=== PATIENT | male | born 1995 | race Two or more races ===

== ENCOUNTER 2024-06-28 20:21 | Emergency (ER) | payer OTHER ==
[~2024-06-28] VITALS: Ht 170.2 cm; Wt 68.0 kg
[2024-06-28] MEDS ORDERED: MORPHINE SULFATE 4 MG/ML VIAL IV ONE (20:45)
[2024-06-28] MEDS ORDERED: 0.9 % SODIUM CHLORIDE 1,000 ML IV ONE (20:45)
[2024-06-28] MEDS ORDERED: FAMOtidine 10 MG/ML (4ML VIAL) IV ONE (20:45)
[2024-06-28] MEDS ORDERED: CEFAZOLIN SODIUM 1,000 MG VIAL IV ONE (20:45)
[2024-06-28 21:06] LABS: INR 1.04; PARTIAL THROMBOPLASTIN TIME 20.8 SECONDS (22.0-34.0); PROTHROMBIN TIME 11.3 SECONDS (9.0-11.5)
[2024-06-28 21:12] LABS: ALBUMIN 3.8 gm/dL (3.4-5.0); BILIRUBIN TOTAL 0.94 mg/dL (0.3-1.2); CALCIUM 8.7 mg/dL (8.5-10.1); CREATININE SERUM 1.29 mg/dL (0.70-1.30); GFR 65.4; GLOBULINA 3.5 G/DL (2.4-3.5); POTASSIUM 3.6 mEq/L (3.5-5.1); TOTAL PROTEIN 7.3 gm/dL (6.4-8.2)
[2024-06-28 22:22] LABS: PH,URINE 5.5 (5.0-8.0); URINE APPEARANCE Clear; URINE BILIRRUBIN Negative (NEGATIVE); URINE BLOOD Negative; URINE COLOR Yellow; URINE GLUCOSE Negative (NEGATIVE); URINE KETONE Trace (NEGATIVE); URINE LEUKOCYTE Trace; URINE NITRATE Negative; URINE PROTEIN Negative (NEGATIVE)
[2024-06-28 22:23] LABS: URINE BACTERIA 129.7 uL (0.0-1933); URINE EPITHELIAL CELLS 10.8 uL (0.0-38.8); URINE RBC 10.2 uL (0.0-20.8)
[2024-06-28 22:27] LABS: URINE CAST 0.15 uL (0.0-1.40)
[2024-06-28 23:04] LABS: HEMATOCRIT 41.8 % (39.0-48.0); HEMOGLOBIN 13.6 g/dL (13-16.00); MEAN CELL VOLUME 79.3 fL (80.0-100.00); MEAN CORPUSCULAR HEMOGLOBIN 25.8 pg (27.00-32.0); MEAN CORPUSCULAR HGB CONC 32.6 g/dl (32.0-36.0); PLATELET COUNT 221 K/uL (150-450); RED BLOOD COUNT 5.28 M/uL (4.00-6.00); RED CELL DISTRIBUTION WIDTH 14.2 % (11.5-14.5)
[2024-06-29] MEDS ORDERED: MORPHINE SULFATE 4 MG/ML VIAL IV STA (00:17)
[2024-06-29] MEDS ORDERED: TETANUS & DIPHTHERIA TOX,ADULT 0.5 ML VIAL IM STA (05:39)
== END 2024-06-29 06:22 | disposition designated cancer center or children's hospital (05) ==
LOC: ER 20:21
PROVIDERS: General Practice
DX: S52.181A Other fracture of upper end of right radius, initial encounter for closed fracture (principal); W34.00XA Accidental discharge from unspecified firearms or gun, initial encounter; Y93.89 Activity, other specified; Y92.89 Other specified places as the place of occurrence of the external cause; Y99.9 Unspecified external cause status